=== PATIENT | female | born 1945 | race Caucasian/White ===

== ENCOUNTER 2016-09-19 21:28 | Emergency (ER) | payer OTHER ==
--- NOTE | 2016-09-20 00:06 | ED ORDER SUMMARY ---
..... Patient: PHI MAJOR OrderSheet [facility] VisitID: [id number] [address] [place] [address] 71y, F Registration Date/Time: 09/19/2016 ORDER SHEET Weight: 70.3 kg (stated) Allergies: No Known Drug Allergy GENERAL ORDERS: CBC w Diff Urgent (22:09/19/2016 Fariba R.N. verbal order read back to Remy ASHRAF) (Ack 22:15 CHagrossy ER Biomedical Manager) (22:35 JRkonstantinelli R.N.) CMP Urgent (:09/19/2016 Fariba R.N. verbal order read back to Remy ASHRAF) (Ack 22:15 Norm ER Biomedical Manager) (22:35 JRomanelli R.N.) UA-Culture if indicated Urgent (22:09/19/2016 Fariba R.N. verbal order read back to Remy ASHRAF) (Ack 22:15 Norm ER Biomedical Manager) (22:35 JRomanelli R.N.) Set up (anoscope) (22:09/19/2016 Remy ASHRAF) (Ack 22:15 Norm ER Biomedical Manager) (22:35 Miladyelli R.N.) Amylase Urgent (22:09/19/2016 Remy ASHRAF) (Ack 22:15 Norm ER Biomedical Manager) (22:35 Miladyelli R.N.) Lipase Urgent (22:09/19/2016 Remy ASHRAF) (Ack 22:15 Norm ER Biomedical Manager) (22:35 JRomanelli R.N.) PT with INR Urgent (22:09/19/2016 Remy ASHRAF) (Ack 22:15 Norm ER Biomedical Manager) (22:35 Miladyelli R.N.) PTT Urgent (22:09/19/2016 Remy ASHRAF) (Ack 22:15 Norm ER Biomedical Manager) (22:35 JRomanelli R.N.) MEDICATION ORDERS: IV FLUIDS: IV Saline Lock (22:09/19/2016 Fariba R.N. verbal order read back to Remy ASHRAF) (22:56 DBbarber R.N.) IV Saline Lock (2 large bore sites) (22:12 09/19/2016 Remy ASHRAF) (Cancelled: Physician Order0:54 Fariba Noriega) ORDER SHEET NOTES: [Electronically signed by Bert Broussard R.N. (01:00 09/20/2016)] [Electronically signed by Ozzie Simeon MD (04:08 09/20/2016)] [Electronically locked/signed by Bert Broussard R.N. (01:00 09/20/2016)]
--- NOTE | 2016-09-20 00:06 | ED NURSING NOTES ---
Clinical Report - Nurses [facility] [address] [place] [address] 09/19/2016 21:29 Patient: PHI MAJOR TRIAGE Triage time 21:50 Sep 19 2016. Acuity: LEVEL 3. Chief Complaint: (Rectal Bleed). Alert. JUANIS COMA SCORE: Juanis Coma Scale: 15- eyes open spontaneously (4); best verbal response- oriented x 4 (5); best motor response- obeys commands (6). --22:08 Bert Broussard R.N. 21:53 09/19/16. BP: 130/88. HR: 70. RR: 16. O2 saturation: 96%. Pain level now: 0/10. --22:08 Bert Broussard R.N. 21:53 09/19/16. Temp: 98.6 F. --00:59 Bert Broussard R.N. Weight: 70.3 kg stated. Height/Length: 66.5 inches Per Patient. BMI: 24.6. --21:54 Bert Broussard R.N. Medications Levoxyl Oral (Tablet 200 mcg) 125 mcg, daily. --22:00 Bert Broussard R.N. Atorvastatin Calcium Oral 20 mg, daily. Gabapentin Oral 100 mg x 2, daily. Multivitamins Oral 1 pill, daily. --22:01 Bert Broussard R.N. Fish Oil Oral (Capsule 1000 mg) 2 capsules, daily. --22:02 Bert Broussard R.N. Lisinopril Oral 20 mg, 2x a day. Slow-Mag Oral (Tablet Delayed Release 71.5-119 mg) 1 tablet, daily. Vitamin D Oral (Capsule 2000 unit) 1 capsule, daily. --22:02 Bert Broussard R.N. AmLODIPine Besylate Oral 2.5 mg, daily. --22:03 Bert Broussard R.N. The following entry was struck by Bert Broussard R.N., 22:15 (09/19/16) Reason - wrong value. <<STRICKEN ENTRY-- Clopidogrel Bisulfate Oral 75 mg, daily. --22:00 Bert Broussard R.N. --END STRIKE>>. Allergies No Known Drug Allergy. --22: Bert Broussard R.N. Medication/allergy information source: the patient. --22:08 Bert Broussard R.N. History Arrived by private vehicle. Historian: patient. Accompanied by family and spouse. Primary physician (Myron Clarke, [place], [place]). ( Rectal Bleed, heavier tonight than usual. Pty states that she has had this problem for the last year, she had a banding procedure toward the end of Jul 2016, but the bleeding has worsened since then.). This started today. Onset. (about 1 1/2 hours ago). 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 PAST MEDICAL HX: Hypertension. The patient is post-menopausal. SOCIAL HX: Never smoker. No alcohol use or drug use. No infectious disease exposure. ABUSE ASSESSMENT: No report of abuse. FALL RISK ASSESSMENT: Fall risk assessment completed. No fall risk identified. NUTRITIONAL RISK ASSESSMENT: The nutritional risk assessment revealed no deficiencies. FUNCTIONAL ASSESSMENT: Functional assessment: no impairments noted. LEARNING NEEDS ASSESSMENT: The learning needs assessment revealed no barriers. SKIN INTEGRITY ASSESSMENT: Skin integrity risk assessment completed. No skin integrity risk identified. --22: Bert Broussard R.N. PROBLEMS: Angioplasty with Stent Placement x 2. Epistaxis. Cardiac Procedures. Cystitis. UTI - Urinary Tract Infection. Arthritis. Degenerative Joint Disease. Gout. Hypertension. Thyroid Disease. --22: Bert Broussard R.N. Chest Pain [RuleOut]. --22:06 Bert Broussard R.N. ADDITIONAL SURGERIES: Appendectomy. Coronary Angioplasty. Tonsillectomy. --22:06 Bert Broussard R.N. Interventions ID band on patient. To treatment room. --22: Bert Broussard R.N. PHYSICAL ASSESSMENT Ambulatory to room. GENERAL / NEURO / PSYCH: Alert. Oriented X 4. HEENT: No facial asymmetry noted. RESPIRATORY: Respirations not labored. Breath sounds within normal limits. CVS: Normal sinus rhythm noted. Pulses within normal limits. GI / : Abdomen soft and nontender. SKIN: Skin intact. Skin is warm and dry. Normal skin turgor. --22: Bert Broussard R.N. NURSING PROGRESS NOTES Patient gowned. Reassurance given. Patient identifiers checked. Call light placed in reach. Side rails up x 1. Bed placed in lowest position. Brakes of bed on. Patient ready for evaluation- chart flagged and ED physician notified. --22:09 Bert Broussard R.N. 22:41 09/19/2016 Site #1 started via IV in the right antecubital space with an 18g angiocath using 1% intra-dermal lidocaine, with aseptic technique; one attempt. Blood drawn: rainbow set. Labeled in the presence of the patient and sent to the lab. Saline lock flushed with saline. --22:56 Denis Rivera R.N. 00:10 09/20/2016 Site #1 removed upon discharge. Catheter intact. Manual pressure, bandaid and bandage applied. --00:56 Bert Broussard R.N. 22:35. ( Anascope set up for EDMD at bedside.). --00:56 Bert Broussard R.N. DISPOSITION / DISCHARGE Departure time: 0015. --00:46 Bert Broussard R.N. 00:10 09/20/16. BP: 114/67. HR: 88. RR: 16. O2 saturation: 98% on room air. Temp: 98.6 F. Pain level now: 010. --00:49 Bert Broussard R.N. 00:15. Condition at departure: improved. No learning barriers present. Discharge instructions provided and reviewed with the patient and spouse. Reviewed medication(s) (continue your usual prescribed medications). Reviewed referral to family practice and a supervisor alum plant for followup. Patient verbalized understanding. Written instructions provided in Fijian. The patient was discharged by the physician. She was discharged home and accompanied by spouse. She left the Emergency Department ambulatory and via private vehicle. Spouse driving. --00:51 Bert Broussard R.N. Locked/Released at 09/20/2016 1:00 by Bert Broussard R.N.
--- NOTE | 2016-09-20 00:06 | ED ORDER SUMMARY ---
..... Patient: PHI MAJOR OrderSheet [facility] VisitID: [id number] [address] [place] [address] 71y, F Registration Date/Time: 09/19/2016 ORDER SHEET Weight: 70.3 kg (stated) Allergies: No Known Drug Allergy GENERAL ORDERS: CBC w Diff Urgent (22:09/19/2016 Fariba R.N. verbal order read back to Remy ASHRAF) (Ack 22:15 CHagrossy ER Director Medical Writing) (22:35 JRkonstantinelli R.N.) CMP Urgent (:09/19/2016 Fariba R.N. verbal order read back to Remy ASHRAF) (Ack 22:15 Norm ER Director Medical Writing) (22:35 JRomanelli R.N.) UA-Culture if indicated Urgent (22:09/19/2016 Fariba R.N. verbal order read back to Remy ASHRAF) (Ack 22:15 Norm ER Director Medical Writing) (22:35 JRomanelli R.N.) Set up (anoscope) (22:09/19/2016 Remy ASHRAF) (Ack 22:15 Norm ER Director Medical Writing) (22:35 Miladyelli R.N.) Amylase Urgent (22:09/19/2016 Remy ASHRAF) (Ack 22:15 Norm ER Director Medical Writing) (22:35 Miladyelli R.N.) Lipase Urgent (22:09/19/2016 Remy ASHRAF) (Ack 22:15 Norm ER Director Medical Writing) (22:35 JRomanelli R.N.) PT with INR Urgent (22:09/19/2016 Remy ASHRAF) (Ack 22:15 Norm ER Director Medical Writing) (22:35 Miladyelli R.N.) PTT Urgent (22:09/19/2016 Remy ASHRAF) (Ack 22:15 Norm ER Director Medical Writing) (22:35 JRomanelli R.N.) MEDICATION ORDERS: IV FLUIDS: IV Saline Lock (22:09/19/2016 Fariba R.N. verbal order read back to Remy ASHRAF) (22:56 DBbarber R.N.) IV Saline Lock (2 large bore sites) (22:12 09/19/2016 Remy ASHRAF) (Cancelled: Physician Order0:54 Fariba Noriega) ORDER SHEET NOTES: [Electronically signed by Bert Broussard R.N. (01:00 09/20/2016)] [Electronically signed by Ozzie Simeon MD (04:08 09/20/2016)] [Electronically locked/signed by Bert Broussard R.N. (01:00 09/20/2016)]
--- NOTE | 2016-09-20 00:06 | ED CLINICAL REPORT ---
Clinical Report - Physicians/Mid Levels [facility] [address] [place] [address] 09/19/2016 21:29 Patient: PHI MAJOR Time Seen: 22:12. Arrived- By private vehicle. Historian- patient. HISTORY OF PRESENT ILLNESS Chief Complaint: RECTAL BLEEDING. This started about 1 and 1/2 years ago, has been moderate and is still present (worse this evening - gone now). It has been intermittent and waxing/waning. The patient has had moderate rectal bleeding described as bleeding without stool and blood streaks on stool. Similar symptoms previously: Chronically. Diagnosis: hemorrhoids. REVIEW OF SYSTEMS No chills, fever, sweats, calf pain or chest pain. No cough, difficulty breathing, pedal edema, palpitations or abdominal pain. No urinary problems. She has had mild constipation (today - she says that she had to strain a bit to move her bowels). All systems otherwise negative, except as recorded above. PAST HISTORY she says that she had a colonoscopy 10 years ago. Problems: Angioplasty with Stent Placement x 2. Epistaxis. Cardiac Procedures. Cystitis. UTI - Urinary Tract Infection. Immunizations. Arthritis. Degenerative Joint Disease. Gout. Hypertension. Thyroid Disease. Additional Surgeries: Appendectomy. Coronary Angioplasty. Tonsillectomy. Medications: AmLODIPine Besylate Oral 2.5 mg, daily. Lisinopril Oral 20 mg, 2x a day. Slow-Mag Oral (Tablet Delayed Release 71.5-119 mg) 1 tablet, daily. Vitamin D Oral (Capsule 2000 unit) 1 capsule, daily. Fish Oil Oral (Capsule 1000 mg) 2 capsules, daily. Atorvastatin Calcium Oral 20 mg, daily. Gabapentin Oral 100 mg x 2, daily. Multivitamins Oral 1 pill, daily. Levoxyl Oral (Tablet 200 mcg) 125 mcg, daily. Allergies: No Known Drug Allergy. SOCIAL HISTORY Never smoker. No alcohol use or drug use. FAMILY HISTORY No significant family medical history. ADDITIONAL NOTES The nursing notes have been reviewed. PHYSICAL EXAM Vital Signs: 09/19/2016 21:53 BP: 130/88. HR: 70. RR: 16. O2 saturation: 96%. Pain level now: 010. 09/19/2016 21:53 Temp: 98.6 F. Have been reviewed. Appearance: Alert. No acute distress. Eyes: Pupils equal, round and reactive to light. ENT: Pharynx normal. Neck: Normal inspection. Neck supple. CVS: Normal heart rate and rhythm. Heart sounds normal. Respiratory: No respiratory distress. Breath sounds normal. Abdomen: Soft and nontender. Bowel sounds normal. No organomegaly. No mass. Back: Normal inspection. Anoscopy: No anal fissure identified. Internal hemorrhoid noted. No thrombosed hemorrhoid. No evidence of rectal bleeding visualized. No mass noted on examination. No infection present. Unable to visualize source. No anal fissure present. Rectal: Stool heme negative. (POC test reference range: negative). Skin: Skin warm and dry. Normal skin color. Normal skin turgor. Extremities: Extremities exhibit normal ROM. No calf tenderness. No lower extremity edema. PROGRESS AND PROCEDURES Course of Care: Patient is stable. Patient/family counseled. Old medical records reviewed. Disposition: Discharged. Condition: stable. 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 INSTRUCTIONS Drink plenty of fluids. Warnings: Further evaluation is necessary. GENERAL WARNINGS: Return or contact your physician immediately if your condition worsens or changes unexpectedly, if not improving as expected, or if other problems arise. Your Current Medications: CONTINUE TAKING THE FOLLOWING MEDICATIONS: AmLODIPine Besylate Oral : 2.5 mg daily. Atorvastatin Calcium Oral : 20 mg daily. Fish Oil Oral : Capsule 1000 mg, 2 capsules daily. Gabapentin Oral : 100 mg x 2 daily. Levoxyl Oral : Tablet 200 mcg, 125 mcg daily. Lisinopril Oral : 20 mg 2x a day. Multivitamins Oral : 1 pill daily. Slow-Mag Oral : Tablet Delayed Release 71.5-119 mg, 1 tablet daily. Vitamin D Oral : Capsule 2000 unit, 1 capsule daily. Follow-up: Follow up with your doctor in seven days. Call for the next available appointment. Follow up with a cell maker Schedule your colonoscopy as discussed. Call for the next available appointment. Understanding of the discharge instructions verbalized by patient. (Electronically signed by Ozzie Simeon MD 09/20/2016 4:08)
--- NOTE | 2016-09-20 00:06 | ED CLINICAL REPORT ---
Clinical Report - Physicians/Mid Levels [facility] [address] [place] [address] 09/19/2016 21:29 Patient: PHI MAJOR Time Seen: 22:12. Arrived- By private vehicle. Historian- patient. HISTORY OF PRESENT ILLNESS Chief Complaint: RECTAL BLEEDING. This started about 1 and 1/2 years ago, has been moderate and is still present (worse this evening - gone now). It has been intermittent and waxing/waning. The patient has had moderate rectal bleeding described as bleeding without stool and blood streaks on stool. Similar symptoms previously: Chronically. Diagnosis: hemorrhoids. REVIEW OF SYSTEMS No chills, fever, sweats, calf pain or chest pain. No cough, difficulty breathing, pedal edema, palpitations or abdominal pain. No urinary problems. She has had mild constipation (today - she says that she had to strain a bit to move her bowels). All systems otherwise negative, except as recorded above. PAST HISTORY she says that she had a colonoscopy 10 years ago. Problems: Angioplasty with Stent Placement x 2. Epistaxis. Cardiac Procedures. Cystitis. UTI - Urinary Tract Infection. Immunizations. Arthritis. Degenerative Joint Disease. Gout. Hypertension. Thyroid Disease. Additional Surgeries: Appendectomy. Coronary Angioplasty. Tonsillectomy. Medications: AmLODIPine Besylate Oral 2.5 mg, daily. Lisinopril Oral 20 mg, 2x a day. Slow-Mag Oral (Tablet Delayed Release 71.5-119 mg) 1 tablet, daily. Vitamin D Oral (Capsule 2000 unit) 1 capsule, daily. Fish Oil Oral (Capsule 1000 mg) 2 capsules, daily. Atorvastatin Calcium Oral 20 mg, daily. Gabapentin Oral 100 mg x 2, daily. Multivitamins Oral 1 pill, daily. Levoxyl Oral (Tablet 200 mcg) 125 mcg, daily. Allergies: No Known Drug Allergy. SOCIAL HISTORY Never smoker. No alcohol use or drug use. FAMILY HISTORY No significant family medical history. ADDITIONAL NOTES The nursing notes have been reviewed. PHYSICAL EXAM Vital Signs: 09/19/2016 21:53 BP: 130/88. HR: 70. RR: 16. O2 saturation: 96%. Pain level now: 010. 09/19/2016 21:53 Temp: 98.6 F. Have been reviewed. Appearance: Alert. No acute distress. Eyes: Pupils equal, round and reactive to light. ENT: Pharynx normal. Neck: Normal inspection. Neck supple. CVS: Normal heart rate and rhythm. Heart sounds normal. Respiratory: No respiratory distress. Breath sounds normal. Abdomen: Soft and nontender. Bowel sounds normal. No organomegaly. No mass. Back: Normal inspection. Anoscopy: No anal fissure identified. Internal hemorrhoid noted. No thrombosed hemorrhoid. No evidence of rectal bleeding visualized. No mass noted on examination. No infection present. Unable to visualize source. No anal fissure present. Rectal: Stool heme negative. (POC test reference range: negative). Skin: Skin warm and dry. Normal skin color. Normal skin turgor. Extremities: Extremities exhibit normal ROM. No calf tenderness. No lower extremity edema. PROGRESS AND PROCEDURES Course of Care: Patient is stable. Patient/family counseled. Old medical records reviewed. Disposition: Discharged. Condition: stable. 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 INSTRUCTIONS Drink plenty of fluids. Warnings: Further evaluation is necessary. GENERAL WARNINGS: Return or contact your physician immediately if your condition worsens or changes unexpectedly, if not improving as expected, or if other problems arise. Your Current Medications: CONTINUE TAKING THE FOLLOWING MEDICATIONS: AmLODIPine Besylate Oral : 2.5 mg daily. Atorvastatin Calcium Oral : 20 mg daily. Fish Oil Oral : Capsule 1000 mg, 2 capsules daily. Gabapentin Oral : 100 mg x 2 daily. Levoxyl Oral : Tablet 200 mcg, 125 mcg daily. Lisinopril Oral : 20 mg 2x a day. Multivitamins Oral : 1 pill daily. Slow-Mag Oral : Tablet Delayed Release 71.5-119 mg, 1 tablet daily. Vitamin D Oral : Capsule 2000 unit, 1 capsule daily. Follow-up: Follow up with your doctor in seven days. Call for the next available appointment. Follow up with a bag filler Schedule your colonoscopy as discussed. Call for the next available appointment. Understanding of the discharge instructions verbalized by patient. (Electronically signed by Ozzie Simeon MD 09/20/2016 4:08)
--- NOTE | 2016-09-20 00:06 | ED NURSING NOTES ---
Clinical Report - Nurses [facility] [address] [place] [address] 09/19/2016 21:29 Patient: PHI MAJOR TRIAGE Triage time 21:50 Sep 19 2016. Acuity: LEVEL 3. Chief Complaint: (Rectal Bleed). Alert. JUANIS COMA SCORE: Juanis Coma Scale: 15- eyes open spontaneously (4); best verbal response- oriented x 4 (5); best motor response- obeys commands (6). --22:08 Bert Broussard R.N. 21:53 09/19/16. BP: 130/88. HR: 70. RR: 16. O2 saturation: 96%. Pain level now: 0/10. --22:08 Bert Broussard R.N. 21:53 09/19/16. Temp: 98.6 F. --00:59 Bert Broussard R.N. Weight: 70.3 kg stated. Height/Length: 66.5 inches Per Patient. BMI: 24.6. --21:54 Bert Broussard R.N. Medications Levoxyl Oral (Tablet 200 mcg) 125 mcg, daily. --22:00 Bert Broussard R.N. Atorvastatin Calcium Oral 20 mg, daily. Gabapentin Oral 100 mg x 2, daily. Multivitamins Oral 1 pill, daily. --22:01 Bert Broussard R.N. Fish Oil Oral (Capsule 1000 mg) 2 capsules, daily. --22:02 Bert Broussard R.N. Lisinopril Oral 20 mg, 2x a day. Slow-Mag Oral (Tablet Delayed Release 71.5-119 mg) 1 tablet, daily. Vitamin D Oral (Capsule 2000 unit) 1 capsule, daily. --22:02 Bert Broussard R.N. AmLODIPine Besylate Oral 2.5 mg, daily. --22:03 Bert Broussard R.N. The following entry was struck by Bert Broussard R.N., 22:15 (09/19/16) Reason - wrong value. <<STRICKEN ENTRY-- Clopidogrel Bisulfate Oral 75 mg, daily. --22:00 Bert Broussard R.N. --END STRIKE>>. Allergies No Known Drug Allergy. --22: Bert Broussard R.N. Medication/allergy information source: the patient. --22:08 Bert Broussard R.N. History Arrived by private vehicle. Historian: patient. Accompanied by family and spouse. Primary physician (Myron Clarke, [place], [place]). ( Rectal Bleed, heavier tonight than usual. Pty states that she has had this problem for the last year, she had a banding procedure toward the end of Jul 2016, but the bleeding has worsened since then.). This started today. Onset. (about 1 1/2 hours ago). 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 PAST MEDICAL HX: Hypertension. The patient is post-menopausal. SOCIAL HX: Never smoker. No alcohol use or drug use. No infectious disease exposure. ABUSE ASSESSMENT: No report of abuse. FALL RISK ASSESSMENT: Fall risk assessment completed. No fall risk identified. NUTRITIONAL RISK ASSESSMENT: The nutritional risk assessment revealed no deficiencies. FUNCTIONAL ASSESSMENT: Functional assessment: no impairments noted. LEARNING NEEDS ASSESSMENT: The learning needs assessment revealed no barriers. SKIN INTEGRITY ASSESSMENT: Skin integrity risk assessment completed. No skin integrity risk identified. --22: Bert Broussard R.N. PROBLEMS: Angioplasty with Stent Placement x 2. Epistaxis. Cardiac Procedures. Cystitis. UTI - Urinary Tract Infection. Arthritis. Degenerative Joint Disease. Gout. Hypertension. Thyroid Disease. --22: Bert Broussard R.N. Chest Pain [RuleOut]. --22:06 Bert Broussard R.N. ADDITIONAL SURGERIES: Appendectomy. Coronary Angioplasty. Tonsillectomy. --22:06 Bert Broussard R.N. Interventions ID band on patient. To treatment room. --22: Bert Broussard R.N. PHYSICAL ASSESSMENT Ambulatory to room. GENERAL / NEURO / PSYCH: Alert. Oriented X 4. HEENT: No facial asymmetry noted. RESPIRATORY: Respirations not labored. Breath sounds within normal limits. CVS: Normal sinus rhythm noted. Pulses within normal limits. GI / : Abdomen soft and nontender. SKIN: Skin intact. Skin is warm and dry. Normal skin turgor. --22: Bert Broussard R.N. NURSING PROGRESS NOTES Patient gowned. Reassurance given. Patient identifiers checked. Call light placed in reach. Side rails up x 1. Bed placed in lowest position. Brakes of bed on. Patient ready for evaluation- chart flagged and ED physician notified. --22:09 Bert Broussard R.N. 22:41 09/19/2016 Site #1 started via IV in the right antecubital space with an 18g angiocath using 1% intra-dermal lidocaine, with aseptic technique; one attempt. Blood drawn: rainbow set. Labeled in the presence of the patient and sent to the lab. Saline lock flushed with saline. --22:56 Denis Rivera R.N. 00:10 09/20/2016 Site #1 removed upon discharge. Catheter intact. Manual pressure, bandaid and bandage applied. --00:56 Bert Broussard R.N. 22:35. ( Anascope set up for EDMD at bedside.). --00:56 Bert Broussard R.N. DISPOSITION / DISCHARGE Departure time: 0015. --00:46 Bert Broussard R.N. 00:10 09/20/16. BP: 114/67. HR: 88. RR: 16. O2 saturation: 98% on room air. Temp: 98.6 F. Pain level now: 010. --00:49 Bert Broussard R.N. 00:15. Condition at departure: improved. No learning barriers present. Discharge instructions provided and reviewed with the patient and spouse. Reviewed medication(s) (continue your usual prescribed medications). Reviewed referral to family practice and a soap chipper for followup. Patient verbalized understanding. Written instructions provided in [place]. The patient was discharged by the physician. She was discharged home and accompanied by spouse. She left the Emergency Department ambulatory and via private vehicle. Spouse driving. --00:51 Bert Broussard R.N. Locked/Released at 09/20/2016 1:00 by Bert Broussard R.N.
--- NOTE | 2016-09-20 04:08 | ED DISCHARGE INSTRUCTIONS ---
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 INSTRUCTIONS Drink plenty of fluids. Warnings: Further evaluation is necessary. GENERAL WARNINGS: Return or contact your physician immediately if your condition worsens or changes unexpectedly, if not improving as expected, or if other problems arise. Your Current Medications: CONTINUE TAKING THE FOLLOWING MEDICATIONS: AmLODIPine Besylate Oral : 2.5 mg daily. Atorvastatin Calcium Oral : 20 mg daily. Fish Oil Oral : Capsule 1000 mg, 2 capsules daily. Gabapentin Oral : 100 mg x 2 daily. Levoxyl Oral : Tablet 200 mcg, 125 mcg daily. Lisinopril Oral : 20 mg 2x a day. Multivitamins Oral : 1 pill daily. Slow-Mag Oral : Tablet Delayed Release 71.5-119 mg, 1 tablet daily. Vitamin D Oral : Capsule 2000 unit, 1 capsule daily. Follow-up: Follow up with your doctor in seven days. Call for the next available appointment. Follow up with a library helper Schedule your colonoscopy as discussed. Call for the next available appointment. Understanding of the discharge instructions verbalized by patient. ADDITIONAL INFORMATION Rectal Bleeding (Stable) Your exam today shows signs of blood in the stool. This is called rectal bleeding, because the blood passes through the rectum. However, the blood may not be coming from the rectum. Blood in the stool may be red or black in color. Red blood in the stool usually comes from the lower gastro-intestinal (GI) tract. This may be due to diverticulosis, polyps, colon inflammation or infection, anal fissure or hemorrhoids. In persons over 50 tumors and cancer of the intestinal tract may first show up as red blood in the stool. Upper GI bleeding causes the stool to turn black. This may occur with bleeding from the esophagus, stomach, duodenum or small intestine. Very small amounts of GI bleeding may not be visible and can only be discovered on a chemical test of the stool. You have not lost a large amount of blood and your condition appears stable at this time. It is very important to have a follow-up exam to determine the exact cause of your bleeding. Home Care: 1) You may resume normal activity as long as you feel well. 2) Avoid aspirin and anti-inflammatory drugs such as ibuprofen (Advil, Motrin) and naproxen (Aleve and Naprosyn). You may use acetaminophen (Tylenol) for pain. [ NOTE : If you have chronic liver disease, talk with your doctor before using acetaminophen.] 3) Avoid alcohol. Follow Up with your doctor or as advised by our medical staff. It is very important that you have further tests done to find the cause of your bleeding. Get Prompt Medical Attention if any of the following occur: -- Large amount of rectal bleeding (more than 1 cup of blood in 24 hours) -- Increasing abdominal pain -- Weakness, dizziness or fainting -- Vomiting blood (red or black color) You have been given the following additional information: Rectal Bleed, Stable (Electronically signed by Ozzie Simeon MD 09/20/2016 4:08)
--- NOTE | 2016-09-20 04:08 | ED MED RECONCILIATION SUMMARY ---
Patient: PHI MAJOR Medication Reconciliation Report [facility] VisitID: [id number] [address] [place] [address] 71y, F Registration Date/Time: 09/19/2016 Weight: 70.3 kg Height/Length: (not available) BMI: 24.6 ALLERGIES: No Known Drug Allergy The patient's Home Medications are listed below: CONTINUE TAKING THE FOLLOWING MEDICATIONS: AmLODIPine Besylate Oral 2.5 mg, daily Atorvastatin Calcium Oral 20 mg, daily Fish Oil Oral (1000 mg) 2 capsules, daily Gabapentin Oral 100 mg x 2, daily Levoxyl Oral (200 mcg) 125 mcg, daily Lisinopril Oral 20 mg, 2x a day Multivitamins Oral 1 pill, daily Slow-Mag Oral (71.5-119 mg) 1 tablet, daily Vitamin D Oral (2000 unit) 1 capsule, daily The source(s) of the original Home Medication information: patient The following Medications were given to the patient in the Emergency Department: None. The following Medications were prescribed to the patient: None.
--- NOTE | 2016-09-20 04:08 | ED DISCHARGE INSTRUCTIONS ---
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 INSTRUCTIONS Drink plenty of fluids. Warnings: Further evaluation is necessary. GENERAL WARNINGS: Return or contact your physician immediately if your condition worsens or changes unexpectedly, if not improving as expected, or if other problems arise. Your Current Medications: CONTINUE TAKING THE FOLLOWING MEDICATIONS: AmLODIPine Besylate Oral : 2.5 mg daily. Atorvastatin Calcium Oral : 20 mg daily. Fish Oil Oral : Capsule 1000 mg, 2 capsules daily. Gabapentin Oral : 100 mg x 2 daily. Levoxyl Oral : Tablet 200 mcg, 125 mcg daily. Lisinopril Oral : 20 mg 2x a day. Multivitamins Oral : 1 pill daily. Slow-Mag Oral : Tablet Delayed Release 71.5-119 mg, 1 tablet daily. Vitamin D Oral : Capsule 2000 unit, 1 capsule daily. Follow-up: Follow up with your doctor in seven days. Call for the next available appointment. Follow up with a nutrition worker Schedule your colonoscopy as discussed. Call for the next available appointment. Understanding of the discharge instructions verbalized by patient. ADDITIONAL INFORMATION Rectal Bleeding (Stable) Your exam today shows signs of blood in the stool. This is called rectal bleeding, because the blood passes through the rectum. However, the blood may not be coming from the rectum. Blood in the stool may be red or black in color. Red blood in the stool usually comes from the lower gastro-intestinal (GI) tract. This may be due to diverticulosis, polyps, colon inflammation or infection, anal fissure or hemorrhoids. In persons over 50 tumors and cancer of the intestinal tract may first show up as red blood in the stool. Upper GI bleeding causes the stool to turn black. This may occur with bleeding from the esophagus, stomach, duodenum or small intestine. Very small amounts of GI bleeding may not be visible and can only be discovered on a chemical test of the stool. You have not lost a large amount of blood and your condition appears stable at this time. It is very important to have a follow-up exam to determine the exact cause of your bleeding. Home Care: 1) You may resume normal activity as long as you feel well. 2) Avoid aspirin and anti-inflammatory drugs such as ibuprofen (Advil, Motrin) and naproxen (Aleve and Naprosyn). You may use acetaminophen (Tylenol) for pain. [ NOTE : If you have chronic liver disease, talk with your doctor before using acetaminophen.] 3) Avoid alcohol. Follow Up with your doctor or as advised by our medical staff. It is very important that you have further tests done to find the cause of your bleeding. Get Prompt Medical Attention if any of the following occur: -- Large amount of rectal bleeding (more than 1 cup of blood in 24 hours) -- Increasing abdominal pain -- Weakness, dizziness or fainting -- Vomiting blood (red or black color) You have been given the following additional information: Rectal Bleed, Stable (Electronically signed by Ozzie Simeon MD 09/20/2016 4:08)
--- NOTE | 2016-09-20 04:08 | ED MAR SUMMARY ---
..... Medication Administration Record [facility] [address] [place], [place] [id number] Patient: PHI MAJOR Visit ID: [id number] 71y, F Weight: 70.3 kg Height/Length: 66.5 in BMI: 24.6 ALLERGIES: No Known Drug Allergy
--- NOTE | 2016-09-20 04:08 | ED MED RECONCILIATION SUMMARY ---
Patient: PHI MAJOR Medication Reconciliation Report [facility] VisitID: [id number] [address] [place] [address] 71y, F Registration Date/Time: 09/19/2016 Weight: 70.3 kg Height/Length: (not available) BMI: 24.6 ALLERGIES: No Known Drug Allergy The patient's Home Medications are listed below: CONTINUE TAKING THE FOLLOWING MEDICATIONS: AmLODIPine Besylate Oral 2.5 mg, daily Atorvastatin Calcium Oral 20 mg, daily Fish Oil Oral (1000 mg) 2 capsules, daily Gabapentin Oral 100 mg x 2, daily Levoxyl Oral (200 mcg) 125 mcg, daily Lisinopril Oral 20 mg, 2x a day Multivitamins Oral 1 pill, daily Slow-Mag Oral (71.5-119 mg) 1 tablet, daily Vitamin D Oral (2000 unit) 1 capsule, daily The source(s) of the original Home Medication information: patient The following Medications were given to the patient in the Emergency Department: None. The following Medications were prescribed to the patient: None.
--- NOTE | 2016-09-20 04:08 | ED MAR SUMMARY ---
..... Medication Administration Record [facility] [address] [place], [place] [id number] Patient: PHI MAJOR Visit ID: [id number] 71y, F Weight: 70.3 kg Height/Length: 66.5 in BMI: 24.6 ALLERGIES: No Known Drug Allergy
== END 2016-09-20 00:15 | disposition home or self-care (01) ==
LOC: ED SRH 21:28
DX: K60.1 Chronic anal fissure (principal); K62.5 Hemorrhage of anus and rectum; R82.71 Bacteriuria; I10 Essential (primary) hypertension; E07.9 Disorder of thyroid, unspecified; Z79.899 Other long term (current) drug therapy
CPT/HCPCS: 90004; 90100; 90148; 90469; 92235; 92530; 94001; 94060; 95059